=== PATIENT | female | born 1980 | race Asian ===

== ENCOUNTER 2018-01-05 09:41 | Day surgery (SDC) | payer BC ==
[~2018-01-05] VITALS: Ht 162.6 cm; Wt 96.0 kg
[~2018-01-05 09:41] MED LIST: ASPI-496 PO; BIOT800T PO; CHOL10002 PO; MULT1TAB60 PO; OMEG1CAP34 PO; POME250C2 PO; PREN1TAB60 PO; RASP100C PO; VITEX PO
[2018-01-05 10:21] VITALS: BP 122/86
[2018-01-05] MEDS ORDERED: LACTATED RINGERS 1,000 ML IV SCH (10:23)
[2018-01-05 10:34] LABS: HCG UR SG 1.017 (1.003-1.030)
[2018-01-05] MEDS ORDERED: SILVER NITRATE STICK TP ONE (11:21)
[2018-01-05] MEDS ORDERED: OXYTOCIN 10 UNITS/ML, 1ML ONE (11:21)
[2018-01-05] MEDS ORDERED: LIDOCAINE 1%-EPI 1:100K, 30ML ONE (11:21)
[2018-01-05] MEDS ORDERED: VASOPRESSIN 20 UNIT/ML, 1ML ONE (11:23)
[2018-01-05] MEDS ORDERED: FENTANYL PF 100 MCG/2ML ONE (12:17)
[2018-01-05] MEDS ORDERED: MIDAZOLAM 1 MG/ML, 2ML ONE (12:17)
[2018-01-05] MEDS ORDERED: PROPOFOL 10 MG/ML, 20ML ONE (12:45)
[2018-01-05] MEDS ORDERED: DEXAMETHASONE 4 MG/ML, 1ML ONE (12:45)
[2018-01-05] MEDS ORDERED: ONDANSETRON 2MG/ML, 2ML ONE (12:45)
[2018-01-05] MEDS ORDERED: KETOROLAC 30 MG/1 ML ONE (12:45)
[2018-01-05] MEDS ORDERED: MIDAZOLAM 1 MG/ML, 2ML IV PRN (13:00)
[2018-01-05] MEDS ORDERED: FENTANYL PF 100 MCG/2ML IV PRN (13:00)
[2018-01-05] MEDS ORDERED: OXYcodone 5 MG/5 ML ORAL.SOL UDC PO PRN (13:00)
[2018-01-05] MEDS ORDERED: SCOPOLAMINE PATCH, 1.5MG PATCH.TD72 TD PRN (13:00)
[2018-01-05] MEDS ORDERED: ACETAMINOPHEN 325 MG TABLET PO PRN (13:00)
[2018-01-05] MEDS ORDERED: MEPERIDINE/PF 25MG/0.5ML IVPush PRN (13:00)
[2018-01-05] MEDS ORDERED: ONDANSETRON 2MG/ML, 2ML IV PRN (13:00)
[2018-01-05] MEDS ORDERED: ALBUTEROL/IPRATROPIUM 2.5MG/0.5MG, 3 ML NPPB PRN (13:00)
[2018-01-05] MEDS ORDERED: LABETALOL 5MG/ML, 20ML IV PRN (13:00)
[2018-01-05] MEDS ORDERED: PROMETHAZINE 25 MG SUPP PR PRN (13:00)
[2018-01-05] MEDS ORDERED: HYDROmorphone 1 MG/ML, 1ML IV PRN (13:00)
== END 2018-01-05 15:35 | disposition home or self-care (01) ==
LOC: OUT 09:41
PROVIDERS: ATTEND Specialist
DX: N92.5 Other specified irregular menstruation (principal); N85.00 Endometrial hyperplasia, unspecified; Z79.82 Long term (current) use of aspirin
CPT/HCPCS: 58558; 81025; 88305; J1100; J1885; J2250; J2405; J2704; J3010; J7120; J3490; J2590

== ENCOUNTER 2018-04-28 10:23 | Day surgery (SDC) | payer BC ==
[~2018-04-28] VITALS: Ht 162.6 cm; Wt 99.5 kg
[~2018-04-28 10:23] MED LIST changes: +NONE PER PT
[2018-04-28 10:46] VITALS: BP 130/91
[2018-04-28] MEDS ORDERED: LACTATED RINGERS 1,000 ML IV SCH (10:48)
[2018-04-28] MEDS ORDERED: LIDOCAINE-MPF 1%, 2ML INFIL ONE (11:00)
[2018-04-28] MEDS ORDERED: METHYLERGONOVINE 0.2 MG/ML IM ONE (12:51)
[2018-04-28] MEDS ORDERED: OXYTOCIN 10 UNITS/ML, 1ML ONE (12:51)
[2018-04-28] MEDS ORDERED: FENTANYL PF 100 MCG/2ML ONE (13:18)
[2018-04-28] MEDS ORDERED: MIDAZOLAM 1 MG/ML, 2ML ONE (13:18)
[2018-04-28] MEDS ORDERED: DEXAMETHASONE 4 MG/ML, 1ML ONE (14:17)
[2018-04-28] MEDS ORDERED: KETOROLAC 30 MG/1 ML ONE (14:17)
[2018-04-28] MEDS ORDERED: ONDANSETRON 2MG/ML, 2ML ONE (14:26)
[2018-04-28] MEDS ORDERED: PROPOFOL 10 MG/ML, 20ML ONE (14:26)
[2018-04-28] MEDS ORDERED: HYDROmorphone 2 MG/ML, 1ML IVPush PRN (15:00)
[2018-04-28] MEDS ORDERED: FENTANYL PF 100 MCG/2ML IV PRN (15:00)
[2018-04-28] MEDS ORDERED: ONDANSETRON 2MG/ML, 2ML IV PRN (15:00)
[2018-04-28] MEDS ORDERED: hydrALAzine 20 MG/ML, 1ML IV PRN (15:00)
[2018-04-28] MEDS ORDERED: ACETAMINOPHEN 325 MG TABLET PO PRN (15:00)
[2018-04-28] MEDS ORDERED: ALBUTEROL/IPRATROPIUM 2.5MG/0.5MG, 3 ML NPPB PRN (15:00)
[2018-04-28] MEDS ORDERED: MEPERIDINE/PF 25MG/0.5ML IVPush PRN (15:00)
[2018-04-28] MEDS ORDERED: PROMETHAZINE 25 MG/ML, 1ML IV PRN (15:00)
[2018-04-28] MEDS ORDERED: OXYcodone 5 MG/5 ML ORAL.SOL UDC PO PRN (15:00)
[2018-04-28] MEDS ORDERED: MIDAZOLAM 1 MG/ML, 2ML IV PRN (15:00)
[2018-04-28] MEDS ORDERED: SCOPOLAMINE PATCH, 1.5MG PATCH.TD72 TD PRN (15:00)
[2018-04-28] MEDS ORDERED: METOPROLOL 1 MG/ML, 5ML IV PRN (15:00)
== END 2018-04-28 16:45 | disposition home or self-care (01) ==
LOC: OUT 10:23
PROVIDERS: ATTEND Specialist
DX: O02.1 Missed abortion (principal); Z87.891 Personal history of nicotine dependence
CPT/HCPCS: 36415; 59820; 86901; 88305; J1100; J1885; J2250; J2405; J2704; J3010; J7120; J2210; J2590